=== PATIENT | male | born 1985 | race Caucasian/White ===

== ENCOUNTER 2016-07-16 07:32 | Day surgery (SDC) | payer OTHER ==
[~2016-07-16] VITALS: Ht 172.7 cm; Wt 71.0 kg
[2016-07-16] VITALS (15 sets, daily range): BP systolic 110–150; BP diastolic 53–97; PULSE 78–130; RESP 12–26; Ht 172.7 cm; Wt 71.0 kg
[2016-07-16] MEDS ORDERED: ALBU2.5V3 NEB (08:20)
[2016-07-16 08:32] LABS: ADD SCAN DIFF NO
[2016-07-16 08:40] LABS: BASOPHIL # 0.1 10^3/ul (0.0-0.1); BASOPHILS % 0.7 % (0.0-2.0); EOSINOPHILS # 0.3 10^3/ul (0.0-0.5); EOSINOPHILS % 3.8 % (0.0-7.0); HEMATOCRIT 47.4 % (42.0-52.0); HEMOGLOBIN 16.5 g/dl (14.0-18.0); LYMPHOCYTES # 2.3 10^3/ul (0.8-2.9); LYMPHOCYTES % 29.8 % (15.0-51.0); MEAN CORPUSCULAR HEMOGLOBIN 30.4 pg (29.0-33.0); MEAN CORPUSCULAR HGB CONC 34.8 g/dl (32.0-37.0); MEAN CORPUSCULAR VOLUME 87.3 fl (82.0-101.0); MEAN PLATELET VOLUME 9.6 fl (7.4-10.4); MONOCYTE # 0.6 10^3/ul (0.3-0.9); MONOCYTES % 8.1 % (0.0-11.0); NEUTROPHIL # 4.4 10^3/ul (1.6-7.5); NEUTROPHILS % 57.1 % (39.0-77.0); PLATELET COUNT 329 10^3/UL (140-415); RED BLOOD COUNT 5.43 10^6/ul (4.70-6.10); RED CELL DISTRIBUTION WIDTH 11.3 % (11.5-14.5); WHITE BLOOD COUNT 7.6 10^3/ul (4.8-10.8)
[2016-07-16 08:48] LABS: INR 0.98
[2016-07-16 08:49] LABS: PARTIAL THROMBOPLASTIN TIME 28.1 Sec (25.0-35.0)
[2016-07-16 08:53] LABS: POTASSIUM 3.8 mmol/L (3.5-5.1)
[2016-07-16 09:00] LABS: CALCIUM 9.1 mg/dl (8.4-10.2); CREATININE 0.89 mg/dl (0.61-1.24)
[2016-07-16] MEDS ORDERED: ALBUTEROL/IPRATROPIUM (NEB) 3 ML AMP HHN STA (09:28)
[2016-07-16] MEDS ORDERED: PROPOFOL 20 ML ONE (09:36)
[2016-07-16] MEDS ORDERED: ALBUTEROL 0.083% (NEB) 2.5 MG/3 ML AMP ONE (09:36)
[2016-07-16] MEDS ORDERED: ROCURONIUM 50 MG INJ ONE ×2 (09:36→10:32)
[2016-07-16] MEDS ORDERED: LIDOCAINE 1% (MDV) 20 ML INJ ONE (09:37)
[2016-07-16] MEDS ORDERED: ROPIVACAINE 0.5 % 30 ML VIAL ONE (09:37)
[2016-07-16] MEDS ORDERED: DEXAMETHASONE 4 MG/ML 1 ML INJ ONE (09:37)
[2016-07-16] MEDS ORDERED: MIDAZOLAM 1 MG/ML 2 ML INJ ONE (09:37)
--- NOTE | 2016-07-16 09:37 | HPN ---
Date/Time of Note Date/Time of Note DATE: 07/16/16 TIME: 09:37 Interval H&P Admission Note Pt. seen H&P reviewed: No system changes MARV WHITMAN MD Jul 16, 2016 09:37
[2016-07-16] MEDS ORDERED: GENTAMICIN 80 MG/NS (PMX) 50 ML ONE (09:40)
[2016-07-16] MEDS ORDERED: LIDOCAINE 1%/EPI 30 ML INJ ONE (09:42)
[2016-07-16] MEDS ORDERED: BUPIVACAINE 0.25%/EPI (SDV) 30 ML INJ ONE (09:42)
[2016-07-16] MEDS ORDERED: ONDANSETRON 4 MG INJ ONE (10:13)
[2016-07-16] MEDS ORDERED: FAMOTIDINE 20 MG INJ ONE (10:13)
[2016-07-16] MEDS ORDERED: EPHEDrine SULFATE 50 MG/5 ML SYG ONE (10:28)
[2016-07-16] MEDS ORDERED: KETOROLAC 30 MG INJ ONE (11:14)
[2016-07-16] MEDS ORDERED: NEOSTIGMINE 3 MG/3 ML SYRINGE ONE (11:15)
[2016-07-16] MEDS ORDERED: GLYCOPYRROLATE 0.4 MG INJ ONE (11:15)
[2016-07-16] MEDS ORDERED: LACTATED RINGER'S 1,000 ML IV SCH ×2 (11:25)
[2016-07-16] MEDS ORDERED: MEPERIDINE 25 MG INJ IV PRN (11:30)
[2016-07-16] MEDS ORDERED: HYDROCODONE/APAP (5/325) TAB PO PRN ×2 (11:30)
[2016-07-16] MEDS ORDERED: morphine 2 MG INJ IV PRN (11:30)
[2016-07-16] MEDS ORDERED: ONDANSETRON 4 MG INJ IV PRN (11:30)
[2016-07-16] MEDS ORDERED: HYDROmorphONE (0.2 MG/ML) 10ML SYG IV PRN ×2 (11:30)
[2016-07-16] MEDS ORDERED: ALBUTEROL 0.083% (NEB) 2.5 MG/3 ML AMP HHN ONE (11:30)
[2016-07-16] MEDS ORDERED: KETOROLAC 30 MG INJ IV PRN (11:30)
[2016-07-16] MEDS ORDERED: DIPHENHYDRAMINE 50 MG INJ IV PRN (11:30)
--- NOTE | 2016-07-16 12:33 | OPR ---
DATE OF OPERATION: 07/16/2016 PREOPERATIVE DIAGNOSIS: Ventral paraumbilical hernia. POSTOPERATIVE DIAGNOSES: Incarcerated ventral supraumbilical hernia. OPERATION PERFORMED: 1. Excision of the sac. 2. Repair of the hernial defect with implantation of a Ventralex mesh from [employer]. SURGEON: Alex Hanson MD BENDING ROLL HAND: None. ANESTHESIA: General, local and regional. ANESTHESIOLOGIST: Flex Villanueva DO INDICATION: The patient presented to the office complaining of swelling and pain above the umbilicu s for a long time. Recently it has been bothering him too much. So diagnosis of ventral hernia inc arcerated was made. Discussed with the patient alternatives of treatment, risks and benefits of ope ration, possible complications including infection, bleeding, damage to intra-abdominal organs, wood ce of recurrence, and also discussed the possibility of implantation of the mesh, and possible compl ications of the mesh like infection of the mesh and complications to follow. The patient understood , agreed and signed the consent and we proceeded with the procedure. PROCEDURE: The patient was brought to the operating room, placed on operating table in supine posit ion. Anesthesia was induced by the anesthesiologist. One gram of Ancef and 80 mg of gentamicin wer e given IV. Then, the anesthesiologist gave TAP block bilaterally to the patient. Then, the patien t's abdominal area was shaved and then prepped with Betadine and draped in a sterile fashion. All t hrough the operation, a mixture of 0.25% Marcaine with epinephrine 30 mL, plus 30 mL of 1% Xylocaine with epinephrine was used for local anesthesia and analgesia. A longitudinal incision was made above the umbilicus, also subumbilical and we went around the umbil icus, below the umbilicus extended. The stalk of the umbilicus was from attachment and th en local flaps were developed and the bulk of the incarcerated hernia was identified. The sac was i solated and , sent for pathologic evaluation. The omentum which was the content of the sac could not be reduced because of the tightness of the neck, so I had to make more incision in the mi dline above and below the incarcerated umbilicus, so that the omentum can be inspected and there was no necrosis and there was no bowel in the content of the sac. It was reduced back into the periton eal cavity. At this time, the incision in the fascia has increased to about 3 cm, so repair of the cephalad and caudal part of the incision in the fascia was performed with Ethibond #1 [id number] t sutures placed. The area of the protrusion of the omentum through the midline fascia was kept ope n first and then Ventralex mesh 4.3 cm x 4.3 cm was soaked in antibiotic and was placed under the fa scia. The slings of that were sutured to the midline fascia bilaterally, and at the end the opening in the fascia was also sutured with #0 Prolene [id number] placed and completely fascia was barb sed on top of the mesh. The wound was irrigated thoroughly with antibiotic solution and Betadine. Then the stalk of the umb ilicus was sutured back to the midline. Then, excessive skin of the umbilicus, the superior part, w as excised and then the wound was closed with 2 layers, deep layer for obliteration of space wi th 2-0 Vicryl and the skin was closed with skin kerrie. The patient tolerated procedure well. Spo nge and instrument count reported to be correct x2. Estimated blood loss nil. Mesh present. Specim en hernia sac was sent for pathologic evaluation. Totally 30 mL of the aforementioned solution was injected all around the incision for postoperative analgesia. The patient was extubated, transferre d to recovery room in stable condition. Dictated By: ALEX GAMINO/MEGAN Conf#: [id number] DID#: [id number]
== END 2016-07-16 14:46 | disposition home or self-care (01) ==
LOC: SDS 07:32
DX: K43.6 Other and unspecified ventral hernia with obstruction, without gangrene (principal); J45.909 Unspecified asthma, uncomplicated
CPT/HCPCS: 49561; 49568; 80048; 85025; 85610; 85730; 88302; C1781; J1100; J1170; J1580; J2250; J2270; J2405; J2710; J2795; J3010; J1885